=== PATIENT | female | born 2000 | race African-American/Black ===

== ENCOUNTER 2020-08-19 20:52 | Emergency (ER) | payer OTHER ==
[~2020-08-19] VITALS: Ht 167.6 cm; Wt 58.1 kg
[2020-08-19 21:02] VITALS: BP 107/69
[2020-08-19] MEDS ORDERED: TRIA15CR3 TP (21:17)
[2020-08-19] MEDS ORDERED: LORA10TA68 PO (21:17)
== END 2020-08-19 21:25 | disposition home or self-care (01) ==
LOC: ER 21:02
DX: L30.8 Other specified dermatitis (principal); Z79.899 Other long term (current) drug therapy

== ENCOUNTER 2021-10-31 05:40 | Emergency (ER) | payer MEDICAID, OTHER ==
[~2021-10-31] VITALS: Ht 167.6 cm; Wt 63.5 kg
[~2021-10-31 05:40] MED LIST: LORA10TA68 PO; TRIA15CR3 TP
[2021-10-31 06:18] VITALS: BP 139/77
--- NOTE | 2021-10-31 06:21 | NUR ---
TO ER BED 4. BIBFRIEND C/O LEFT SIDE ABD PAIN RADIATING TO LEFT FLANK AREA X TODAY. PT TOOK ADVIL WITH LITTLE RELIEF. CHANGED INTO GOWN. CONNECTED TO MONITOR. AWAITING MD ASHER
--- NOTE | 2021-10-31 06:22 | NUR ---
URINE SAMPLE COLLECTED AND SENT TO LAB
[2021-10-31] MEDS ORDERED: KETOROLAC TROMETHAMINE INJ 30 MG/ML VIAL IV ONE (06:30)
[2021-10-31] MEDS ORDERED: IV NS 0.9% 1,000 ML BAG IV ONE (06:30)
--- NOTE | 2021-10-31 06:33 | NUR ---
PT REFUSING MEDS, IV LINE , AND FLUIDS ORDERED. MADE AWARE
[2021-10-31 07:05] LABS: BASOPHILS % (AUTO) 0.6 % (0.0-2.0); EOSINOPHILS % (AUTO) 0.9 % (0.0-6.0); HEMATOCRIT 41 % (33-45); HEMOGLOBIN 13.5 g/dL (11.5-14.8); LYMPHOCYTES # (AUTO) 1.6 K/uL (0.8-4.8); LYMPHOCYTES % (AUTO) 26.8 % (20.0-44.0); MEAN CORPUSCULAR HGB CONC 33 g/dl (31.0-36.0); MEAN CORPUSCULAR VOLUME 89 fL (82-100); MONOCYTES # (AUTO) 0.5 K/uL (0.1-1.30); MONOCYTES % (AUTO) 8.6 % (2.0-12.0); NEUTROPHILS # (AUTO) 3.7 K/uL (1.8-8.9); NEUTROPHILS % (AUTO) 63.1 % (43.0-81.0); PLATELET COUNT (AUTO) 279 K/uL (150-450); RED BLOOD CELL COUNT(AUTO) 4.55 MIL/uL (4.0-5.2); WHITE BLOOD COUNT (AUTO) 5.9 K/uL (4.3-11.0)
[2021-10-31 07:12] LABS: ALBUMIN 3.7 g/dL (3.4-5.0); BILIRUBIN,DIRECT 0.1 mg/dL (0.0-0.2); BILIRUBIN,TOTAL 0.2 mg/dL (0.2-1.0); CALCIUM, SERUM 8.6 mg/dL (8.5-10.1); CREATININE 0.7 mg/dL (0.6-1.3); POTASSIUM 4.1 mmol/L (3.5-5.1); TOTAL PROTEIN, SERUM 7.4 g/dL (6.4-8.2)
--- NOTE | 2021-10-31 07:21 | NUR ---
Patient does not wish to proceed with medical care recommended by Dr. Arce. Patient given information related to possible complications, up to and including , which could occur as a result of leaving the hospital at this time. Patient verbalizes understanding of risks involved due to leaving against medical advice. Patient has signed AMA form.
[2021-10-31 08:40] LABS: BILIRUBIN,URINE NEGATIVE (NEGATIVE); COLOR,URINE YELLOW (YELLOW); LEUKOCYTE ESTERASE ,URINE NEGATIVE (NEGATIVE); NITRITE, URINE NEGATIVE (NEGATIVE); PROTEIN,URINE NEGATIVE (NEGATIVE); UGLUCOSE NEGATIVE (NEGATIVE); UROBILINOGEN,URINE 0.2 EU/dL (0.2)
== END 2021-10-31 07:36 | disposition left against medical advice (07) ==
LOC: ER 05:50
DX: R10.32 Left lower quadrant pain (principal); R10.12 Left upper quadrant pain; Z60.2 Problems related to living alone; Z79.899 Other long term (current) drug therapy
CPT/HCPCS: 36415; 80048-TC; 80076-TC; 83690-TC; 84703-TC; 85025-TC; J7030

== ENCOUNTER 2024-06-04 10:36 | Emergency (ER) | payer MEDICAID, OTHER ==
[~2024-06-04] VITALS: Ht 167.6 cm; Wt 61.2 kg
[2024-06-04] MEDS ORDERED: IBUPROFEN 600 MG TABLET ONE (13:01)
[2024-06-04] MEDS: IBUPROFEN 600 MG TABLET PO ONE (13:03)
[2024-06-04 13:11] VITALS: BP 112/65; TEMP 97.9; O2SAT 98
== END 2024-06-04 13:13 | disposition home or self-care (01) ==
LOC: ER 10:40
DX: M79.672 Pain in left foot (principal); Z60.2 Problems related to living alone
CPT/HCPCS: 73630-TC